=== PATIENT | male | born 1990 | race Caucasian/White ===

== ENCOUNTER 2020-12-12 15:00 | Outpatient (CLI) | payer BC, SELFPAY ==
--- NOTE | 2020-12-12 16:00 | MR_ITS ---
WS: [id number] MRI LUMBAR SPINE NONCONTRAST HISTORY: M54.42 - Lumbago with sciatica, left side COMPARISON: None available. TECHNIQUE: Sagittal and axial multisequence imaging is submitted. Normal lumbar alignment with no compression fractures or marrow edema. Mild disc space narrowing and desiccation at L5-S1. Conus terminates normally at L1-2 disc level. L1-L2: Normal. L2-L3: Normal. L3-L4: Very mild annular disc bulging with facet and ligamentum flavum hypertrophy. Mild encroachment into the foramen but no significant stenosis. L4-L5: Very mild annular disc bulging with ligamentum flavum hypertrophy and facet arthritis. Small a mount of fluid in the facet joints. L5-S1: Large central to LEFT paracentral disc protrusion extends into the LEFT lateral recess. Displa cing the thecal sac and nerve roots posteriorly and to the RIGHT. There is significant encroachment u carley the LEFT S1 nerve root. The disc also extends towards the midline and abuts but does not displace the RIGHT S1 nerve root. The disc protrusion extends over a width of 1.4 cm x 0.6 cm anterior explosive ordnance disposal specialist ior. MR/MR lumbar spine wo con* [id number] IMPRESSION: 1. Large central to LEFT paracentral disc protrusion at L5-S1 extends into the LEFT lateral recess and displaces the LEFT S1 nerve root posteriorly. Minimal encroachment but no displacement on the RIGHT S1 nerve root. 2. Mild facet arthropathy at L3-4 and L4-5.
== END 2020-12-12 15:01 | disposition home or self-care (01) ==
LOC: RADSHAW 15:05
PROVIDERS: Visit Provider Nurse Practitioner Family
DX: M54.42 Lumbago with sciatica, left side (principal); M51.27 Other intervertebral disc displacement, lumbosacral region; M47.816 Spondylosis without myelopathy or radiculopathy, lumbar region
CPT/HCPCS: 72148

== ENCOUNTER → 2022-06-26 16:35 | Outpatient (BNVA) | payer BC, SELFPAY | PROVIDERS: Visit Provider Family Medicine | DX: R53.83 Other fatigue (principal) | CPT/HCPCS: 80053; 82306; 82607; 83540; 84403; 84443 ==

== ENCOUNTER → 2022-09-14 13:02 | Outpatient (BNVA) | payer BC, SELFPAY | PROVIDERS: Visit Provider Family Medicine | DX: R79.89 Other specified abnormal findings of blood chemistry (principal) | CPT/HCPCS: 84402; 84403 ==

== ENCOUNTER → 2022-11-21 11:12 | Outpatient (BNVA) | payer BC, SELFPAY | PROVIDERS: Visit Provider Family Medicine | DX: R79.89 Other specified abnormal findings of blood chemistry (principal); Z80.42 Family history of malignant neoplasm of prostate | CPT/HCPCS: 84403; G0103 ==

== ENCOUNTER → 2022-12-28 09:34 | Outpatient (BNVA) | payer BC, SELFPAY | PROVIDERS: Visit Provider Urology | DX: E29.1 Testicular hypofunction (principal) | CPT/HCPCS: 82040; 82670; 83001; 83002; 84146; 84270; 84403 ==

== ENCOUNTER → 2023-03-14 09:33 | Outpatient (BNVA) | payer BC, SELFPAY | PROVIDERS: Visit Provider Urology | DX: E29.1 Testicular hypofunction (principal); R68.82 Decreased libido | CPT/HCPCS: 83001; 83002; 84146; 84403 ==

== ENCOUNTER → 2023-07-12 13:01 | Outpatient (BNVA) | payer BC, SELFPAY | PROVIDERS: PCP Nurse Practitioner Family; Visit Provider Nurse Practitioner Family | DX: R53.83 Other fatigue (principal) | CPT/HCPCS: 80053; 82306; 82607; 83036; 83735; 84403; 84443; 85025 ==

== ENCOUNTER → 2023-08-02 10:24 | Outpatient (BNVA) | payer BC, SELFPAY | PROVIDERS: PCP Nurse Practitioner Family; Visit Provider Nurse Practitioner Family | DX: R89.9 Unspecified abnormal finding in specimens from other organs, systems and tissues (principal) | CPT/HCPCS: 80048 ==

== ENCOUNTER → 2023-09-06 10:58 | Outpatient (BNVA) | payer BC, SELFPAY | PROVIDERS: PCP Nurse Practitioner Family; Visit Provider Nurse Practitioner Family | DX: N28.9 Disorder of kidney and ureter, unspecified (principal); R89.9 Unspecified abnormal finding in specimens from other organs, systems and tissues | CPT/HCPCS: 80048 ==

== ENCOUNTER → 2024-07-24 11:28 | Outpatient (BNVA) | payer BC, SELFPAY | PROVIDERS: PCP Nurse Practitioner Family; Visit Provider Nurse Practitioner Family | DX: K21.9 Gastro-esophageal reflux disease without esophagitis (principal); R53.83 Other fatigue | CPT/HCPCS: 80053; 80061; 84403; 84443; 85025 ==

== ENCOUNTER 2024-07-31 13:25 | Outpatient (CLI) | payer BC, SELFPAY ==
[2024-07-31 13:51] LABS: Sperm Immotility 0 % (50-60); Sperm Non-Progressive Motility 5 % (5-10); Sperm Progressive Motility 95 % (31-34)
== END 2024-07-31 13:26 | disposition home or self-care (01) ==
LOC: LAB 13:29
PROVIDERS: PCP Nurse Practitioner Family; Visit Provider Urology
DX: Z98.52 Vasectomy status (principal)
CPT/HCPCS: 89310

== ENCOUNTER → 2025-06-04 12:00 | Outpatient (BNVA) | payer BC, SELFPAY | PROVIDERS: PCP Nurse Practitioner Family; Visit Provider Nurse Practitioner Family | DX: Z98.52 Vasectomy status (principal); R53.83 Other fatigue | CPT/HCPCS: 80053; 80061; 82306; 82607; 83735; 84403; 84443; 85025 ==

== ENCOUNTER → 2025-10-29 12:56 | Outpatient (BNVA) | payer BC, SELFPAY | PROVIDERS: PCP Nurse Practitioner Family; Visit Provider Nurse Practitioner Family | DX: E29.1 Testicular hypofunction (principal) | CPT/HCPCS: 84153 ==